=== PATIENT | female | born 1950 | race Caucasian/White ===

== ENCOUNTER 2016-05-17 12:35 | Emergency (ER) | payer SELFPAY ==
[~2016-05-17] VITALS: Ht 157.5 cm; Wt 61.2 kg
--- NOTE | 2016-05-17 12:35 | NUR ---
Patient BIBA BLS, transferred to bed 3. RN evaluating patient at bedside.
--- NOTE | 2016-05-17 12:54 | NUR ---
Dr. Lam evaluating patient at bedside.
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
[2016-05-17 13:03] VITALS: BP 138/80
--- NOTE | 2016-05-17 13:11 | NUR ---
AAO FILIPINO SPEAKING PT TAKEN OFF THE UNIT TO CT VIA GURNEY BY WEB MARKETING COORDINATOR MADELINE
[2016-05-17] MEDS ORDERED: traMADol 50 MG TAB PO ONE (13:40)
[2016-05-17 14:54] VITALS: BP 118/68
--- NOTE | 2016-05-17 14:54 | NUR ---
Patient discharged with v/s stable. Written and verbal after care instructions given and explained. Patient verbalized understanding. Ambulatory with CANE ASSIST WITH steady gait. All questions addressed prior to discharge. Advised to follow up with PMD.
== END 2016-05-17 14:54 | disposition home or self-care (01) ==
LOC: MED 12:35
DX: S16.1XXA Strain of muscle, fascia and tendon at neck level, initial encounter (principal); S09.90XA Unspecified injury of head, initial encounter; I10 Essential (primary) hypertension; Z88.0 Allergy status to penicillin; V89.2XXA Person injured in unspecified motor-vehicle accident, traffic, initial encounter; Y93.89 Activity, other specified; Y92.89 Other specified places as the place of occurrence of the external cause; Y99.8 Other external cause status
CPT/HCPCS: 70450; 72125; 99284